=== PATIENT | male | born 1975 | race Caucasian/White ===

== ENCOUNTER 2018-10-30 08:30 | Observation (INO) | payer OTHER ==
[2018-10-30] MEDS ORDERED: Famotidine IV* 10 MG/ML 2 ML (20 mg) IV SLOW PU ONE (08:44)
[2018-10-30] MEDS ORDERED: Al Hydrox/Mg Hydrox/Simet LIQ* 30 ML UDC PO ONE (08:44)
[2018-10-30] MEDS ORDERED: Morphine 4 MG/ML VIAL (1 ml) 4 MG/ML VIAL IV ONE (08:50)
[2018-10-30 09:10] LABS: ABS Basophils 0 10^3/ul (0-0.2); ABS Eosinophils 0.7 10^3/ul (0-0.6); ABS Monocytes 0.5 10^3/ul (0-0.8); ABS Neutrophils 4.2 10^3/ul (1.5-7.7); ABS Nucleated RBC 0 10^3/ul; Eosinophil % 8.8 %; Hematocrit 45 % (36-46); Hemoglobin 15.4 g/dL (14.0-18.0); Lymphocyte % 27.5 %; Mean Corpuscular HGB Conc 34 g/dL (31-36); Mean Corpuscular Hemoglobin 29 pg (27-31); Mean Corpuscular Volume 85 fL (80-94); Mean Platelet Volume 8.3 fL (7.4-10.4); Nucleated Red Blood Cells % 0; Platelet Count 196 10^3/uL (150-450); Red Blood Count 5.24 10^6 /uL (4.18-5.48); Red Cell Distribution Width 14 % (10.5-15); White Blood Count 7.5 10^3/uL (3.5-10.8)
[2018-10-30 09:15] LABS: INR 0.91 (0.77-1.02)
[2018-10-30 09:27] LABS: Albumin 4.1 g/dL (3.2-5.2); Albumin/Globulin Ratio 1.7 (1-3); BUN/Creatinine Ratio 18.3 (8-20); Calcium 9.3 mg/dL (8.6-10.3); EGFR African American 93.4 (>60); EGFR Non-African American 77.2 (>60); Globulin 2.4 g/dL (2-4); Potassium 3.8 mmol/L (3.5-5.0); Total Bilirubin 0.5 mg/dL (0.2-1.0); Total Protein 6.5 g/dL (6.4-8.9)
[2018-10-30 09:28] LABS: Troponin I 0.01 ng/mL (<0.04)
--- NOTE | 2018-10-30 10:00 | ED ---
HPI Chest Pain - HPI Summary HPI Summary: Patient is a 43-year-old male with no significant PMH presenting to the ED with midsternal chest pressure which is nonradiating which is been intermittent for the past week. He states he was seen at the [facility] with a full workup which was negative for any cardiac etiologies. He has no significant past medical history. Family history of father and grandfather both with MD and hypertension. Grandfather of MD at 52yo. He has never been diagnosed with GERD or gastric ulcers. 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 He describes this as a chest pressure without burning sensation. He is also endorsing difficulty swallowing with a few episodes of vomiting secondary to his difficulty swallowing. He has never had any of the symptoms in the past. He denies any fevers, sweats, chills. He denies any body aches, headaches. While advised to stay at the [facility] for further testing, patient left AMA. He was given Maalox and Famotidine. He has been taking his medications for one week without improvement. Patient is a nonsmoker. Takes Wellbutrin daily. - History of Current Complaint Chief Complaint: EDChestPainROMI Time Seen by Provider: 10/30/18 08:32 Hx Obtained From: Patient Onset/Duration: Started Hours Ago Timing: Constant Initial Severity: Moderate Current Severity: Moderate Pain Intensity: 7 Pain Scale Used: 0-10 Numeric Chest Pain Location: Mid Sternal Chest Pain Radiates: Yes Character: Dull/Aching Aggravating Factor(s): Nothing Alleviating Factor(s): Nothing - Risk Factors Pulmonary Embolism Risk Factors: Negative TAD Risk Factors: Negative - Allergy/Home Medications Allergies/Adverse Reactions: Allergies Allergy/AdvReac Type Severity Reaction Status Date / Time No Known Allergies Allergy Verified 10/30/18 08:37 Home Medications: Home Medications Bupropion XL* [Wellbutrin XL *] 300 mg PO DAILY 10/30/18 [History Confirmed 05/10] PMH/Surg Hx/FS Hx/Imm Hx Previously Healthy: Yes Cardiovascular History: Denies: Hx Hypertension Respiratory History: Reports: Other Respiratory Problems/Disorders - PNEUMONIA - Immunization History Hx Pertussis Vaccination: No Immunizations Up to Date: Yes Infectious Disease History: No Infectious Disease History: Denies: Traveled Outside the [place] in Last 30 Days - Social History Occupation: Employed Full-time Lives: Alone Alcohol Use: None Hx Substance Use: No Substance Use Type: Reports: None Hx Tobacco Use: No Smoking Status (MU): Never Smoked Tobacco Review of Systems Constitutional: Negative Negative: Fever, Chills, Fatigue, Skin Diaphoresis Positive: Other - difficulty swallowing. Negative: Dental Pain, Sore Throat Positive: Chest Pain Respiratory: Negative Genitourinary: Negative Positive: no symptoms reported, see HPI Negative: Arthralgia, Myalgia Skin: Negative Neurological: Negative All Other Systems Reviewed And Are Negative: Yes Physical Exam Triage Information Reviewed: Yes Vital Signs On Initial Exam: Initial Vitals Temp Pulse Resp BP Pulse Ox 98.6 F 77 20 136/103 99 10/30/18 08:33 10/30/18 08:33 10/30/18 08:33 10/30/18 08:33 10/30/18 08:33 Vital Signs Reviewed: Yes Appearance: Positive: Well-Appearing, Well-Nourished Skin: Positive: Warm, Skin Color Reflects Adequate Perfusion Head/Face: Positive: Normal Head/Face Inspection Eyes: Positive: EOMI, Conjunctiva Clear Neck: Positive: Supple, No Lymphadenopathy Respiratory/Lung Sounds: Positive: Clear to Auscultation, Breath Sounds Present Cardiovascular: Positive: RRR, Pulses are Symmetrical in both Upper and Lower Extremities Musculoskeletal: Positive: Strength/ROM Intact Neurological: Positive: Sensory/Motor Intact, Alert, Oriented to Person Place, Time, Speech Normal Psychiatric: Positive: Normal, Affect/Mood Appropriate AVPU Assessment: Alert Diagnostics - Vital Signs Vital Signs Temp Pulse Resp BP Pulse Ox 10/30/18 09:37 75 24 113/73 98 10/30/18 09:06 78 28 155/111 99 10/30/18 09:00 80 36 99 10/30/18 08:59 76 27 135/102 97 10/30/18 08:58 20 10/30/18 08:36 78 136/103 99 10/30/18 08:33 98.6 F 77 20 136/103 99 - Laboratory Lab Results: Lab Results 10/30/18 10/30/18 10/30/18 Range/Units 08:58 08:58 08:58 WBC 7.5 (3.5-10.8) 10^3/uL RBC 5.24 (4.18-5.48) 10^6 /uL Hgb 15.4 (14.0-18.0) g/dL Hct 45 (36-46) % MCV 85 (80-94) fL MCH 29 (27-31) pg MCHC 34 (31-36) g/dL RDW 14 (10.5-15) % Plt Count 196 (150-450) 10^3/uL MPV 8.3 (7.4-10.4) fL Neut % (Auto) 56.1 % Lymph % (Auto) 27.5 % [place] % (Auto) 7.1 % Eos % (Auto) 8.8 % Baso % (Auto) 0.5 % Absolute Neuts (auto) 4.2 (1.5-7.7) 10^3/ul Absolute Lymphs (auto) 2.0 (1.0-4.8) 10^3/ul Absolute Monos (auto) 0.5 (0-0.8) 10^3/ul Absolute Eos (auto) 0.7 H (0-0.6) 10^3/ul Absolute Basos (auto) 0 (0-0.2) 10^3/ul Absolute Nucleated RBC 0 10^3/ul Nucleated RBC % 0 INR (Anticoag Therapy) (0.77-1.02) Sodium 137 (135-145) mmol/L Potassium 3.8 (3.5-5.0) mmol/L Chloride 104 (101-111) mmol/L Carbon Dioxide 24 (22-32) mmol/L Anion Gap 9 (2-11) mmol/L BUN 19 (6-24) mg/dL Creatinine 1.04 (0.67-1.17) mg/dL Est GFR ( Amer) 93.4 (>60) Est GFR (Non-Af Amer) 77.2 (>60) BUN/Creatinine Ratio 18.3 (8-20) Glucose 104 H (70-100) mg/dL Lactic Acid 2.0 (0.5-2.0) mmol/L Calcium 9.3 (8.6-10.3) mg/dL Magnesium 2.0 (1.9-2.7) mg/dL Total Bilirubin 0.50 (0.2-1.0) mg/dL AST 36 (13-39) U/L ALT 42 (7-52) U/L Alkaline Phosphatase 50 (34-104) U/L Troponin I 0.01 (<0.04) ng/mL Total Protein 6.5 (6.4-8.9) g/dL Albumin 4.1 (3.2-5.2) g/dL Globulin 2.4 (2-4) g/dL Albumin/Globulin Ratio 1.7 (1-3) 10/30/18 Range/Units 08:58 WBC (3.5-10.8) 10^3/uL RBC (4.18-5.48) 10^6 /uL Hgb (14.0-18.0) g/dL Hct (36-46) % MCV (80-94) fL MCH (27-31) pg MCHC (31-36) g/dL RDW (10.5-15) % Plt Count (150-450) 10^3/uL MPV (7.4-10.4) fL Neut % (Auto) % Lymph % (Auto) % [place] % (Auto) % Eos % (Auto) % Baso % (Auto) % Absolute Neuts (auto) (1.5-7.7) 10^3/ul Absolute Lymphs (auto) (1.0-4.8) 10^3/ul Absolute Monos (auto) (0-0.8) 10^3/ul Absolute Eos (auto) (0-0.6) 10^3/ul Absolute Basos (auto) (0-0.2) 10^3/ul Absolute Nucleated RBC 10^3/ul Nucleated RBC % INR (Anticoag Therapy) 0.91 (0.77-1.02) Sodium (135-145) mmol/L Potassium (3.5-5.0) mmol/L Chloride (101-111) mmol/L Carbon Dioxide (22-32) mmol/L Anion Gap (2-11) mmol/L BUN (6-24) mg/dL Creatinine (0.67-1.17) mg/dL Est GFR ( Amer) (>60) Est GFR (Non-Af Amer) (>60) BUN/Creatinine Ratio (8-20) Glucose (70-100) mg/dL Lactic Acid (0.5-2.0) mmol/L Calcium (8.6-10.3) mg/dL Magnesium (1.9-2.7) mg/dL Total Bilirubin (0.2-1.0) mg/dL AST (13-39) U/L ALT (7-52) U/L Alkaline Phosphatase (34-104) U/L Troponin I (<0.04) ng/mL Total Protein (6.4-8.9) g/dL Albumin (3.2-5.2) g/dL Globulin (2-4) g/dL Albumin/Globulin Ratio (1-3) Result Diagrams: 10/30/18 08:58 10/30/18 08:58 Lab Statement: Any lab studies that have been ordered have been reviewed, and results considered in the medical decision making process. Chest Pain Course/Dx - Course Course Of Treatment: During this course treatment, the patient's evaluated for midsternal chest pain which is nonradiating, described as a pressure. During the course of treatment, he was given 4 baby aspirin, 4 mg morphine, famotidine 40 mg and Maalox plus. He states this did not improve his symptoms. He continues to have midsternal chest pressure rated as 7/10. Denies any nausea, vomiting, diarrhea, constipation, headache. Denies any diaphoresis. Denies any known fevers. While he continues to have chest pain, he will be admitted to the hospitalist for further evaluation. MINDI score 0. Discussed case with hospitalist, Dr. Purcell. - Chest Pain Differential Diagnosis/HQI/PQRI: Acute MD, ACS, Angina, Chest Wall - Diagnoses Provider Diagnoses: Atypical chest pain - Provider Notifications Discussed Care Of Patient With: Katiuska Purcell Instructed by Provider To: Admit As Inpatient Discharge - Sign-Out/Discharge Documenting (check all that apply): Patient Departure Patient Received Moderate/Deep Sedation with Procedure: No - Discharge Plan Condition: Good Disposition: ADMITTED TO [facility] - Billing Disposition and Condition Condition: GOOD Disposition: Admitted to [facility]
[2018-10-30] MEDS ORDERED: Aspirin 81 mg CHEW TAB* 81 MG TAB.CHEW PO ONE (10:28)
[2018-10-30] MEDS ORDERED: Aspirin 81 mg CHEW TAB* 81 MG TAB.CHEW ONE (10:42)
[2018-10-30 12:33] LABS: Urine Appearance Clear; Urine Bilirubin Negative (Negative); Urine Blood Negative (Negative); Urine Color Yellow; Urine Glucose Negative (Negative); Urine Ketones Negative (Negative); Urine Nitrite Negative (Negative); Urine Protein Negative (Negative); Urine Specific Gravity 1.014 (1.010-1.030); Urine Urobilinogen Negative (Negative)
[2018-10-30] MEDS ORDERED: Pantoprazole TAB * 40 MG TAB PO SCH (13:00)
[2018-10-30] MEDS: Albuterol 2.5 MG/3 ML NEB.SOL* (0.083%) INH PRN (13:30)
--- NOTE | 2018-10-30 13:47 | HP ---
CC: Beverley Cortés, nurse practitioner at the [facility] HISTORY AND PHYSICAL: ADDENDUM: The case was reviewed and discussed with Maryuri Oconnor, physician curriculum assistant principal. Mr. Brown is a 43-year-old gentleman that presented to the emergency room with complaints of 8 month s of intermittent chest pain. It is not associated with exertion. He was seen at the [facility] an d at that time, the plan was for him to be admitted for further workup, but he declined because he altman d to work. He was then seen again and diagnosed with pneumonia and started on azithromycin and predn isone, but he states that his symptoms have been unchanged. He also had some complaints of dysphagia and feeling that the food gets stuck, so I suspect his chest pain is probably GI in nature. The emiliano n is for him to be admitted and pursue workup to rule out acute coronary syndrome. He does have a fa jermaine history of coronary artery disease and we will pursue a stress test if acute coronary syndrome i s ruled out. His chest x-ray does not show any acute infiltrates at this time. We will request a GI consultation as I suspect his chest pain is GI in nature. He may even have a Zenker's diverticulum causing his sy mptoms or severe esophagitis also. [id number]/[facility] #: [id number]
--- NOTE | 2018-10-30 13:47 | HP ---
CC: Beverley Cortés NP* HISTORY AND PHYSICAL: DATE OF ADMISSION: 10/30/18 PRIMARY CARE PROVIDER: Beverley Cortés NP. ATTENDING PHYSICIAN: Katiuska Rocha MD* (dictated by SHAMIR Early). CHIEF COMPLAINT: Chest pain. HISTORY OF PRESENT ILLNESS: Mr. Brown is a 43-year-old male with a past medical history of depression, who presented to the ER today with complaints of chest pain. The patient states that this all started approximately 1 month ago with midsternal chest pain. He describes it as a constant pressure with intermittent stabbing sensation that leads to shortness of breath and occasionally diaphoresis. He states that it is not associated with eating, breathing or moving. When this all began approximately 1 month ago, he tried omeprazole x1 week with no relief. Within the last week, he has also tried an H2 elisabeth, cannot remember the name of it. He used 3 or 4 doses of this with no relief and has discontinued all these medications. It is noted that he presented to the [facility] approximately 1 week ago with the same chest pain. They had planned to admit him for an ACS workup, but the patient was unable to stay the night due to work. He was noted to have pneumonia on chest x-ray while at the [facility], was given 5 days of doxycycline. He then went to an outpatient clinic on Sunday stating that his pneumonia had not resolved, and he was prescribed Z- Mikel and tapering dose of prednisone. In terms of the chest pain, he states that he sought medical attention today because it was the worst it has ever been this morning. He states that he woke up around 5 a.m. with chest pain. He states that it is more intense and associated with increased shortness of breath. To rule out this experience, the patient reports that there has never been any radiation of the pain. He states that nothing relieves the pain, although he does note that the morphine did decrease the pain from about an 8 to about 4/10, although it still occasionally jumps to a 7/10. The patient continues to have a nonproductive cough. He admits to bright red blood per rectum. He notes that he has a history of hemorrhoids, but also has a family history of colon cancer. His primary care physician has ordered a colonoscopy, which he has scheduled. He also notes a feeling like there is "a lump in my throat." He notes that he will attempt to swallow foods and they feel like they get stuck on something and cause occasional regurgitation. This is intermittent and causes pain with swallowing, both solids and liquids. He denies abdominal pain, changes in bowel or bladder habits. He denies palpitations, blurred vision or headache. He does continue to have an occasional low-grade fever, which is likely associated with his pneumonia. While in the ER, the patient received Maalox, aspirin 325, Pepcid and morphine. He also had a chest x-ray, EKG and blood work. PAST MEDICAL HISTORY: Depression. PAST SURGICAL HISTORY: Stents for kidney stones x2. Colonoscopy approximately 6 years ago, which patient states was negative. HOME MEDICATIONS: 1. Bupropion XL 300 mg daily. 2. Azithromycin 250 mg x5 days, 2 days left. 3. Prednisone taper 30, 20, 10, x2 days each, the patient's last dose of 30 mg prednisone is tomorrow. ALLERGIES: No known drug allergies. FAMILY HISTORY: Positive for colon, prostate and bladder cancer; CHF; CAD; NC; diabetes mellitus; CVA. SOCIAL HISTORY: The patient does not and has never used tobacco products. He rarely drinks. He does not use illicit drugs. 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 He lives with his girlfriend and her son. In the event that he is unable to make his own medical decisions, he appoints Mar Brown, his mother , to be his surrogate decision maker. REVIEW OF SYSTEMS: A 10-point review of systems was performed and all the pertinent positives and negatives are in the HPI. PHYSICAL EXAMINATION GENERAL: Mr. Brown is a well-developed, well-nourished, slightly obese, middle - aged white man. He is sitting up in bed. He appears to be in no acute distress. VITAL SIGNS: Temperature 98.6, temporal; heart rate 81; respiratory rate 17; oxygen saturation 96% on room air; blood pressure 127/73. HEENT: Visual veronica are grossly intact. The pupils are equally round and reactive to light. Extraocular movements are intact. There is no scleral icterus. Hearing is grossly intact. Oral mucous membranes are moist. There are no lesions. The pharynx is clear. NECK: Full range of motion and trachea midline. No lymphadenopathy. RESPIRATORY: Symmetrical chest expansion with no use of accessory muscles. There is a slight wheeze throughout both lungs. CARDIOVASCULAR: Regular rate and rhythm with S1 and S2 present. There are no murmurs, rubs or gallops. There is no JVD. ABDOMEN: Bowel sounds in all quadrants. The abdomen is soft. It is nontender to palpation without palpable mass. No hepatosplenomegaly. MUSCULOSKELETAL: Full range of motion without pain or deformities. EXTREMITIES: Skin is warm and smooth bilaterally. There is no edema, clubbing or cyanosis. Radial and pedal pulses are palpable. NEURO: The patient is awake. He is alert and oriented x3. He is able to move all of his extremities. Motor strength is 5/5 in upper and lower extremities bilaterally. DIAGNOSTIC STUDIES/LAB DATA: ECG, 10/30/18, normal sinus rhythm. Chest x-ray, 10/30/18. Impression: No evidence for active cardiopulmonary disease. WBC 7.5, RBC 5.24, HGB 15.4, HCT 45, platelets 196. Sodium 137, potassium 3.8, chloride 104, carbon dioxide 24, anion gap 9, BUN 19, creatinine 1.04, lactic acid 2.0, magnesium 2.0, troponin 0.01. ASSESSMENT AND PLAN: Mr. Brown is a 43-year-old male with a past medical history as described above who presented to the ER today with complaints of chest pain. The patient will be admitted to observation for: 1. Chest pain, rule out acute coronary syndrome. The patient received morphine and aspirin in the ER. He will be continued on aspirin 81 mg throughout his stay. He will be admitted and placed on telemetry. An EKG will be obtained in the morning. His troponins will be trended x3. First troponin is within normal limits. Hemoglobin A1c and lipid panel will be drawn. The patient will be scheduled for an exercise stress test tomorrow. The patient states he sought medical attention at the [facility] in [place]. A record request has been placed for his medical information from that visit. 2. Foreign body sensation upon swallowing. The patient will be placed on a PPI during his stay. GI will be consulted for suggestions and recommendations. 3. Pneumonia. The patient requested Ventolin inhaler, which has been ordered. He has already taken his azithromycin and prednisone today. Azithromycin will be continued for tomorrow and Sunday. Prednisone 30 will be continued tomorrow followed by 2 doses of 20 and 2 doses of 10 as scheduled by his primary care physician. 4. Depression. The patient will be continued on bupropion XL 300 daily. 5. FEN. The patient will be placed on heart healthy, no caffeine diet and will be made n.p.o. after midnight. 6. Code status: Full code. 7. DVT prophylaxis: Based on the DVT risk assessment, the patient scores a 2, which is moderate risk. He will be placed on Lovenox 40 subcu daily. TIME SPENT: Approximately 60 minutes was spent on this admission, greater than half that time was spent with the patient, his girlfriend and his mother obtaining history, performing physical, and reviewing the plan of care. The case has been reviewed with my attending, Dr. Rocha, who is in agreement with the plan of care. MARYURI OCONNOR, SHAMIR [id number]/[facility] #: [id number] ADDENDUM HISTORY AND PHYSICAL: CC: Beverley Cortés, nurse practitioner at the [facility]* ADDENDUM: The case was reviewed and discussed with Maryuri Oconnor, physician pastry assistant. Mr. Brown is a 43-year-old gentleman that presented to the emergency room with complaints of 8 months of intermittent chest pain. It is not associated with exertion. He was seen at the [facility] and at that time, the plan was for him to be admitted for further workup, but he declined because he had to work. He was then seen again and diagnosed with pneumonia and started on azithromycin and prednisone, but he states that his symptoms have been unchanged. He also had some complaints of dysphagia and feeling that the food gets stuck, so I suspect his chest pain is probably GI in nature. The plan is for him to be admitted and pursue workup to rule out acute coronary syndrome. He does have a family history of coronary artery disease and we will pursue a stress test if acute coronary syndrome is ruled out. His chest x-ray does not show any acute infiltrates at this time. We will request a GI consultation as I suspect his chest pain is GI in nature. He may even have a Zenker's diverticulum causing his symptoms or severe esophagitis also. Katiuska Rocha MD [id number]/[facility] #: [id number] MAGAN
[2018-10-30] MEDS: Enoxaparin(*) 40 MG/0.4 ML SYR SUBCUT SCH (13:49)
[2018-10-30] MEDS ORDERED: Acetaminophen TAB* 325 MG PO PRN (18:06)
[2018-10-30] MEDS ORDERED: Morphine INJ* 2 MG/ML 1 ML SYRINGE (TWO MG - NEW SYRINGE VERSION) IV PRN (18:07)
[2018-10-30] MEDS ORDERED: Al Hydrox/Mg Hydrox/Simet LIQ* 30 ML UDC ONE (18:13)
[2018-10-30] MEDS ORDERED: Acetaminophen TAB* 325 MG ONE (18:15)
[2018-10-30] MEDS: Al Hydrox/Mg Hydrox/Simet LIQ* 30 ML UDC PO PRN (18:20)
--- NOTE | 2018-10-30 18:48 | PN ---
Subjective Date of Service: 10/30/18 Interval History: Spoke with Dr. Jo PLAN: -EGD in afternoon providing stress test negative; expected time is 5478-6321 -Start IV Pantoprazole 40 BID; ordered to start 2100 tonight Objective Active Medications: Acetaminophen (Tylenol Tab*) 650 mg PO Q4H PRN PRN Reason: PAIN Al Hydrox/Mg Hydrox/Simethicone (Maalox Plus*) 30 ml PO Q4H PRN PRN Reason: INDIGESTION Last Admin: 10/30/18 18:20 Dose: 30 ml Albuterol (Ventolin 2.5 Mg/3 Ml Neb.Katina*) 2.5 mg INH [id number] AWAKE PRN PRN Reason: sob/wheezing Last Admin: 10/30/18 13:30 Dose: 2.5 mg Aspirin (Aspirin Ec Tab*) 81 mg PO DAILY [facility] Azithromycin (Zithromax Tab*) 250 mg PO DAILY [facility] Stop: 11/02/18 08:59 Bupropion HCl (Wellbutrin Xl *) 300 mg PO DAILY [facility] Enoxaparin Sodium (Lovenox(*)) 40 mg SUBCUT Q24H [facility] Last Admin: 10/30/18 13:49 Dose: Not Given Morphine Sulfate (Morphine Inj (Syringe))*) 1 mg IV Q4H PRN PRN Reason: breakthrough pain Pantoprazole Sodium (Protonix Tab*) 40 mg PO DAILY [facility] Last Admin: 10/30/18 13:45 Dose: 40 mg Prednisone (Deltasone Tab*) 30 mg PO ONCE ONE Stop: 10/31/18 09:01 Prednisone (Deltasone Tab*) 20 mg PO DAILY [facility] Stop: 11/02/18 09:01 Prednisone (Deltasone Tab*) 10 mg PO DAILY [facility] Stop: 11/04/18 09:01 Vital Signs - 8 hr 10/30/18 10/30/18 10/30/18 11:00 11:06 11:37 Temperature Pulse Rate 91 91 83 Respiratory 23 27 24 Rate Blood Pressure 133/80 128/67 (mmHg) O2 Sat by Pulse 94 95 95 Oximetry 10/30/18 10/30/18 10/30/18 12:00 12:06 12:31 Temperature Pulse Rate 80 81 78 Respiratory 18 17 19 Rate Blood Pressure 127/73 119/70 (mmHg) O2 Sat by Pulse 93 96 95 Oximetry 10/30/18 10/30/18 10/30/18 12:36 12:38 13:01 Temperature 98.7 F 98 F Pulse Rate 84 81 78 Respiratory 21 18 20 Rate Blood Pressure 125/68 127/73 129/70 (mmHg) O2 Sat by Pulse 95 96 98 Oximetry 10/30/18 10/30/18 10/30/18 13:32 15:33 18:21 Temperature 98.2 F 98.3 F Pulse Rate 82 88 79 Respiratory 18 18 16 Rate Blood Pressure 118/73 135/82 (mmHg) O2 Sat by Pulse 99 97 99 Oximetry Oxygen Devices in Use Now: None Result Diagrams: 10/30/18 08:58 10/30/18 08:58 Additional Lab and Data: Lab Results 10/30/18 10/30/18 10/30/18 Range/Units 08:58 08:58 08:58 WBC 7.5 (3.5-10.8) 10^3/uL RBC 5.24 (4.18-5.48) 10^6 /uL Hgb 15.4 (14.0-18.0) g/dL Hct 45 (36-46) % MCV 85 (80-94) fL MCH 29 (27-31) pg MCHC 34 (31-36) g/dL RDW 14 (10.5-15) % Plt Count 196 (150-450) 10^3/uL MPV 8.3 (7.4-10.4) fL Neut % (Auto) 56.1 % Lymph % (Auto) 27.5 % [place] % (Auto) 7.1 % Eos % (Auto) 8.8 % Baso % (Auto) 0.5 % Absolute Neuts (auto) 4.2 (1.5-7.7) 10^3/ul Absolute Lymphs (auto) 2.0 (1.0-4.8) 10^3/ul Absolute Monos (auto) 0.5 (0-0.8) 10^3/ul Absolute Eos (auto) 0.7 H (0-0.6) 10^3/ul Absolute Basos (auto) 0 (0-0.2) 10^3/ul Absolute Nucleated RBC 0 10^3/ul Nucleated RBC % 0 INR (Anticoag Therapy) (0.77-1.02) Sodium 137 (135-145) mmol/L Potassium 3.8 (3.5-5.0) mmol/L Chloride 104 (101-111) mmol/L Carbon Dioxide 24 (22-32) mmol/L Anion Gap 9 (2-11) mmol/L BUN 19 (6-24) mg/dL Creatinine 1.04 (0.67-1.17) mg/dL Est GFR ( Amer) 93.4 (>60) Est GFR (Non-Af Amer) 77.2 (>60) BUN/Creatinine Ratio 18.3 (8-20) Glucose 104 H (70-100) mg/dL Lactic Acid 2.0 (0.5-2.0) mmol/L Calcium 9.3 (8.6-10.3) mg/dL Magnesium 2.0 (1.9-2.7) mg/dL Total Bilirubin 0.50 (0.2-1.0) mg/dL AST 36 (13-39) U/L ALT 42 (7-52) U/L Alkaline Phosphatase 50 (34-104) U/L Troponin I 0.01 (<0.04) ng/mL Total Protein 6.5 (6.4-8.9) g/dL Albumin 4.1 (3.2-5.2) g/dL Globulin 2.4 (2-4) g/dL Albumin/Globulin Ratio 1.7 (1-3) 10/30/18 Range/Units 08:58 WBC (3.5-10.8) 10^3/uL RBC (4.18-5.48) 10^6 /uL Hgb (14.0-18.0) g/dL Hct (36-46) % MCV (80-94) fL MCH (27-31) pg MCHC (31-36) g/dL RDW (10.5-15) % Plt Count (150-450) 10^3/uL MPV (7.4-10.4) fL Neut % (Auto) % Lymph % (Auto) % [place] % (Auto) % Eos % (Auto) % Baso % (Auto) % Absolute Neuts (auto) (1.5-7.7) 10^3/ul Absolute Lymphs (auto) (1.0-4.8) 10^3/ul Absolute Monos (auto) (0-0.8) 10^3/ul Absolute Eos (auto) (0-0.6) 10^3/ul Absolute Basos (auto) (0-0.2) 10^3/ul Absolute Nucleated RBC 10^3/ul Nucleated RBC % INR (Anticoag Therapy) 0.91 (0.77-1.02) Sodium (135-145) mmol/L Potassium (3.5-5.0) mmol/L Chloride (101-111) mmol/L Carbon Dioxide (22-32) mmol/L Anion Gap (2-11) mmol/L BUN (6-24) mg/dL Creatinine (0.67-1.17) mg/dL Est GFR ( Amer) (>60) Est GFR (Non-Af Amer) (>60) BUN/Creatinine Ratio (8-20) Glucose (70-100) mg/dL Lactic Acid (0.5-2.0) mmol/L Calcium (8.6-10.3) mg/dL Magnesium (1.9-2.7) mg/dL Total Bilirubin (0.2-1.0) mg/dL AST (13-39) U/L ALT (7-52) U/L Alkaline Phosphatase (34-104) U/L Troponin I (<0.04) ng/mL Total Protein (6.4-8.9) g/dL Albumin (3.2-5.2) g/dL Globulin (2-4) g/dL Albumin/Globulin Ratio (1-3) Assess/Plan/Problems-Billing Assessment:
[2018-10-30] MEDS: Pantoprazole IV* 40 MG IV SCH (20:23)
--- NOTE | 2018-10-30 22:51 | CONS ---
CC: SHAMIR Early * GASTROENTEROLOGY CONSULTATION REPORT: DATE OF CONSULT: 10/30/18 CONSULTING PROVIDERS: SHAMIR Early and Dr. Grayson. REASON FOR CONSULT: Chest pain. HISTORY OF PRESENT ILLNESS: Mr. Brown is a 43-year-old gentleman with a history of depression and fatty liver disease, who is admitted with chest pain. Mr. Brown reports chest pain occurring on a daily basis for the past month. The chest pain is located in his sternum and feels like a heavy weight. Associated with shortness of breath as well as occasional diaphoresis. Eating does not clearly seem to make the pain worse. Mr. Brown has also developed a dry cough. He was told there was left lower lobe infiltrate on an x[facility]ray [facility] the [facility] within the past week or two consistent with pneumonia. He was initially placed on doxycycline without significant improvement. Earlier this week, he was placed on azithromycin and a prednisone taper. His symptoms have failed to improve with these medications. He has noticed dysphagia symptoms over the past 3 weeks. The dysphagia seems to occur intermittently with both liquids and solids. The patient denies any significant reflux, nausea, vomiting or abdominal pain. His bowel movements have been normal other than some loose stools when he was on the doxycycline. He had seen bright red blood per rectum a few times in the past few months, although this has not been a recent issue. He tried omeprazole two weeks ago for less than a week. More recently, he used Zantac for a few days without improvement. He has not been on any PPI or antacid therapy in the last week or so. Of note, Mr. Brown had an infected tooth 1 to 2 months ago and took very high dose ibuprofen for several weeks. He recalls taking 1000 to 1200 mg several times a day of ibuprofen for at least 2 weeks. He has not had a prior upper endoscopy. He had a colonoscopy about 6 years ago, which was reportedly negative. He has been referred [facility] for [facility] given the intermittent BRBPR, although he has not been scheduled for this yet. Mr. Brown' sister is at bedside today. She mentions that she has a history of eosinophilic esophagitis. The patient's maternal grandmother had a history of colon cancer. The patient's father has colon polyps and alcoholic cirrhosis. Mr. Brown was admitted to [facility] for observation for the chest pain, shortness of breath, and dysphagia. Troponins and EKG have so far been negative. He is scheduled to have a cardiac stress test tomorrow morning. GI consulted given concern for GI etiology of symptoms. PAST MEDICAL HISTORY: Depression and fatty liver disease. PAST SURGICAL HISTORY: Kidney stones with stenting x2. MEDICATIONS: 1. Bupropion XL 300 mg daily. 2. Azithromycin 250 mg for the past 5 days. 3. Prednisone taper, currently on 30 mg. ALLERGIES: No known drug allergies. FAMILY HISTORY: Maternal grandmother with colon cancer. Father with colon polyps and alcoholic cirrhosis. Sister with eosinophilic esophagitis and fatty liver disease. 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 He does not drink alcohol, use drugs or smoke cigarettes. He lives with his girlfriend and her son. REVIEW OF SYSTEMS: Complete review of systems is negative except as mentioned above. Of note, the patient denies any weight loss. PHYSICAL EXAM: Vital Signs: Temp 98.6, heart rate 81, blood pressure 127/73, 96% on room air. General: Pleasant well-appearing gentleman, in no acute distress. Sitting up in bed, appears comfortable. HEENT: Mucous membranes are moist. Sclerae is anicteric. Cardiovascular: Regular rate and rhythm. No murmurs, rubs or gallops. Pulmonary: Lungs clear to auscultation without wheezing or crackles. Abdomen: Positive bowel sounds. Soft, nontender, nondistended. Extremities: No edema. Skin: No jaundice. DIAGNOSTIC STUDIES/LAB DATA: Labs reviewed. Labs are notable for white count of 7.5 with an elevated absolute eosinophil count of 0.7 or 8.8%, hemoglobin is 15.4, platelet count is normal, INR is normal at 0.91. LFTs are normal. Chest x-ray was negative for acute cardiopulmonary disease. EKGs are reported to be negative. IMPRESSION AND PLAN: Mr. Brown is a 43-year-old gentleman with a history of depression and recent heavy ibuprofen use, who is admitted with 1 month of progressive chest pressure/pain, cough, and dysphagia to liquids and solids. Mr. Brown is hemodynamically stable. Imaging of chest has been unrevealing. Labs are notable for negative troponin and a mildly elevated peripheral eosinophilia. Exam is unremarkable. Mr. Brown is currently undergoing cardiac workup given the chest complaints and shortness of breath. He is scheduled for a stress test tomorrow morning. Assuming the cardiac workup is negative, then I think it is appropriate to proceed with an upper endoscopy to evaluate for upper GI pathology. Differential for patient's symptoms include esophagitis ( reflux versus eosinophilic versus infectious), esophageal obstruction (benign or malignant), peptic ulcer disease (risk factor includes heavy NSAID use prior to onset of symptoms), and achalasia (given patient's dysphagia to both liquids and solids). The elevated peripheral eosinophilia and family history of eosinophilic esophagitis are interesting and make eosinophilic esophagitis a bit higher on the differential. 1. Await results of cardiac stress test. 2. Assuming cardiac stress test is negative, then we will tentatively plan for an EGD tomorrow afternoon. 3. Please see start IV Protonix BID. 4. Avoid NSAIDs. Thank you very much for this consult. Please contact GI with any acute clinical change. [id number]/[facility] #: [id number] MAGAN
[2018-10-31] MEDS: Al Hydrox/Mg Hydrox/Simet LIQ* 30 ML UDC PO PRN ×2 (01:21→08:16)
[2018-10-31] MEDS ORDERED: Famotidine TAB* 20 MG PO ONE (01:29)
[2018-10-31] MEDS: Albuterol 2.5 MG/3 ML NEB.SOL* (0.083%) INH PRN ×3 (01:43→10:19)
[2018-10-31] MEDS ORDERED: Morphine 4 MG/ML VIAL (1 ml) 4 MG/ML VIAL IV ONE (04:03)
[2018-10-31] MEDS ORDERED: Sucralfate TAB* 1 GM PO ONE (04:04)
[2018-10-31 06:13] LABS: ABS Basophils 0.1 10^3/ul (0-0.2); ABS Eosinophils 0.7 10^3/ul (0-0.6); ABS Lymphocytes 3.2 10^3/ul (1.0-4.8); ABS Monocytes 0.6 10^3/ul (0-0.8); ABS Neutrophils 4.5 10^3/ul (1.5-7.7); ABS Nucleated RBC 0 10^3/ul; Hematocrit 45 % (36-46); Hemoglobin 15.1 g/dL (14.0-18.0); Lymphocyte % 35.7 %; Mean Corpuscular HGB Conc 34 g/dL (31-36); Mean Corpuscular Hemoglobin 29 pg (27-31); Mean Corpuscular Volume 87 fL (80-94); Mean Platelet Volume 8.3 fL (7.4-10.4); Nucleated Red Blood Cells % 0.1; Platelet Count 175 10^3/uL (150-450); Red Blood Count 5.17 10^6 /uL (4.18-5.48); Red Cell Distribution Width 14 % (10.5-15); White Blood Count 9.1 10^3/uL (3.5-10.8)
[2018-10-31 06:27] LABS: BUN/Creatinine Ratio 13.9 (8-20); Calcium 8.7 mg/dL (8.6-10.3); EGFR African American 89.5 (>60); EGFR Non-African American 73.9 (>60); HDL Cholesterol 29.7 mg/dL; Potassium 4.1 mmol/L (3.5-5.0)
[2018-10-31] MEDS ORDERED: Morphine 4 MG/ML VIAL (1 ml) 4 MG/ML VIAL IV PRN (08:00)
[2018-10-31] MEDS ORDERED: BuPROPion XL* 150 MG TAB.XL PO SCH (09:00)
[2018-10-31] MEDS ORDERED: predniSONE TAB* 10 MG PO ONE (09:00)
[2018-10-31] MEDS ORDERED: Azithromycin TAB* 250 MG PO SCH (09:00)
[2018-10-31] MEDS ORDERED: Aspirin EC TAB* 81 MG TAB.EC PO SCH (09:00)
[2018-10-31] MEDS: Pantoprazole IV* 40 MG IV SCH (10:27)
[2018-10-31] MEDS ORDERED: Albuterol HFA INHALER* 8 gm MDI INH PRN (10:59)
[2018-10-31] MEDS ORDERED: BuPROPion XL* 300 MG TAB.XL PO SCH (11:00)
[2018-10-31] MEDS: Enoxaparin(*) 40 MG/0.4 ML SYR SUBCUT SCH (11:19)
[2018-10-31] MEDS ORDERED: fentaNYL* 50 MCG/ML 2 ML VIAL (100 MCG VIAL) ONE (14:41)
[2018-10-31] MEDS ORDERED: Midazolam* 1 MG/ML 10 ML VIAL (10 MG) ONE (14:41)
--- NOTE | 2018-10-31 15:00 | PN ---
Progress Note - Progress Note Date of Service: 10/31/18 Note: GI Brief EGD Note Esophagus: NML Stomach: gastric linear ulcer, clean based. No fresh or old blood. extensive erosions and gastritis bx andCLO tested. Duodenum: duodenitis Rec: BID Oral PPI x3 months repeat egd at that time given ulcer and severity No NSAIDS!!!! Ok to d/c from GI AYDIN Estrella DO 10/31/18 1500
[2018-10-31 16:00] VITALS: BP 124/73
--- NOTE | 2018-10-31 22:29 | PRO ---
CC: Beverley Cortés NP * ESOPHAGOGASTRODUODENOSCOPY REPORT: DATE OF PROCEDURE: 10/31/18 - ROOM #[id number] PRIMARY CARE PROVIDER: Beverley Cortés NP INDICATION FOR PROCEDURE: GERD, epigastric pain. PROCEDURE PERFORMED: Complete esophagogastroduodenoscopy with biopsies. MEDICATIONS GIVEN: Include 10 mg IV midazolam, 50 mcg IV fentanyl. DESCRIPTION OF PROCEDURE: After the EGD procedure including the risks, benefits , and alternatives with the risks not limited to perforation, surgery, missed lesions, and/or were explained to the patient, written informed consent was obtained, IV medication was given and a bite-block was placed between the teeth. The adult Olympus gastroscope was then inserted into the patient's oropharynx, into the tubular esophagus. The distal esophagus was grossly normal in appearance with an intact GE junction. The scope was advanced through the lower esophageal sphincter into the stomach. In the body and antrum of the stomach, a long linear ulceration was present, this was clean- based in appearance. There were multiple scattered superficial erosions, which accompanied this along with some gastritis. I did take a biopsy from one ulcer edge and also biopsied for CLOtesting. The scope was then retroflexed. No significant hiatal hernia was visualized. The scope was advanced through a widely patent pylorus, into the duodenal bulb, C-loop, and distal duodenum. There was some mild duodenitis in the bulb, but no gross ulceration appreciated. The scope was then removed from the patient. He tolerated the procedure well. He returned to the recovery room in stable condition. IMPRESSION: 1. Complete esophagogastroduodenoscopy with biopsies. 2. Gastric ulceration, linear, with numerous erosions, clean-based in appearance. 3. Normal esophagus. 4. Duodenitis. RECOMMENDATIONS: Await results of biopsies. Recommend PPI b.i.d. x3 months and then repeat EGD at that point. If positive for H. pylori, we will treat. He should avoid NSAIDs as they are likely the etiology of this. [id number]/[facility] #: [id number] [facility]
--- NOTE | 2018-11-01 00:09 | DS ---
CC: Beverley Cortés NP; Dr. Estrella * DISCHARGE SUMMARY: DATE OF ADMISSION: 10/30/18 DATE OF DISCHARGE: 10/31/18 PRIMARY CARE PROVIDER: Beverley Cortés NP FINAL DISCHARGE DIAGNOSES: 1. Allergic bronchitis with acute exacerbation. 2. Duodenitis. HOSPITAL COURSE: The patient presented to [facility] on 10/30/18 for increased shortness of breath and chest pain associated with cough and congestion. He states that he has been having this difficulty for the past week or 10 days. He had visited the [place] in [place] where he was treated with antibiotic and they wanted to do a cardiac workup, but he had to return to work and he signed himself before the cardiac workup was completed. He went to visit his primary after he completed an outpatient course of doxycycline. They started him on Z-Mikel. Despite taking the Z-Mikel and prednisone, he continued to have increased cough and wheezing. He finally came into the emergency room. He was admitted to our facility for chest pain, atypical at presentation. He underwent regular stress test which was negative for ischemia. He also underwent EGD which did show evidence of duodenitis without any evidence of ulcer; however, he did have extensive erosion as well of his stomach lining. He recommended to have a PPI for 3 months b.i.d. and repeat EGD in 3 months. The patient was reevaluated later this afternoon. On further review on his test results and further obtaining history regarding any allergic environment, he did tell me that he does work in landscaping and hardscaping, and about a week ago, he laid a lot of hay which coincides with with the start of his symptoms. Therefore, I did advise the patient to start on dexamethasone taper steroid for 1 week. I will defer to his primary to either extend it or not. Also, he will benefit from outpatient study for allergic testing such as RAST test. The patient evaluated and he deemed stable for discharge today. DISCHARGE PHYSICAL EXAM: His vital signs are 97.5 for temperature, pulse 90, respiratory rate 20, saturation 99%, blood pressure 124/73. Generally, he is awake, alert, oriented, in no apparent distress. Head and Neck: Normocephalic , atraumatic. Lungs: Positive for minimal fine expiratory wheezing. Cardiovascular: S1, S2, regular rate and rhythm. Abdomen: Positive bowel sounds, soft, nontender, nondistended. Extremities: No edema. LABORATORY STUDIES: He had the following blood work: CBC unremarkable. Chemistry fairly unremarkable with negative troponin. A1c 5.3, lactic acid 2, LDL 94. Urine negative. HIV-1 and -2 negative. DIAGNOSTIC STUDIES: He had the EGD which shows erosive gastritis and duodenitis. Exercise stress testing was negative by EKG criteria. EKG revealed normal sinus rhythm at a rate of 67 with poor R wave progression. No ST-T wave changes to suggest ischemia. DISCHARGE MEDICATIONS: 1. Dexamethasone 4 mg tablet, take 1 tablet t.i.d. for 3 days, then half tablet t.i.d. for 4 days and discontinue. 2. Pantoprazole 40 mg b.i.d. for 3 months. 3. Continue his home medication of Wellbutrin 300 mg daily. DISCHARGE RECOMMENDATIONS: 1. Follow up with the primary in 1 week, no longer, 4 to 7 days. The patient to set up an appointment with the GI, Dr. Estrella for repeat EGD in 3 months to ensure resolution and improvement of his gastritis and duodenitis. 2. Take all medications as prescribed. 3. The patient to remain out of work for 3 days. DISPOSITION: Home, in stable condition. [id number]/[facility] #: [id number] MAGAN
[2018-11-01] MEDS ORDERED: predniSONE TAB* 20 MG PO SCH (09:00)
[2018-11-03] MEDS ORDERED: predniSONE TAB* 10 MG PO SCH (09:00)
== END 2018-10-31 17:30 | disposition home or self-care (01) ==
LOC: ED 08:30 → MEDTELE 11:56
PROVIDERS: ADMIT Internal Medicine; ATTEND Internal Medicine
DX: J45.901 Unspecified asthma with (acute) exacerbation (principal); K29.80 Duodenitis without bleeding; R06.02 Shortness of breath; R07.9 Chest pain, unspecified; Z87.442 Personal history of urinary calculi; K76.0 Fatty (change of) liver, not elsewhere classified; K25.9 Gastric ulcer, unspecified as acute or chronic, without hemorrhage or perforation
CPT/HCPCS: 36415; 71046; 80048; 80053; 80061; 81003; 83036; 83605; 83735; 84484; 85025; 85610; 86703; 87077; 88305; 88342; 93005; 93017; 94640; 96372; 96374; 96375; 96376; 99156; 99157; 99284; A9270-GY; G0378; J1650; J2250; J2270; J3010; J7512